=== PATIENT | female | born 1980 | race Caucasian/White ===

== ENCOUNTER 2022-05-17 11:21 | Emergency (ER) | payer MEDICARE ==
[2022-05-17 13:03] LABS: Absolute Lymphocytes (CBC) 2.6 K/uL (0.7-4.9); MCV 83.9 fL (80-100); MPV 8.2 fL (7.6-11.3); RBC Red Blood Cell Count 4.53 M/uL (3.86-4.86)
[2022-05-17 13:22] LABS: Potassium 3.5 mmol/L (3.5-5.1); Troponin High Sensitivity 3.2 pg/mL (<58.9)
[2022-05-17 13:32] LABS: Blood Morphology Comment NOT SEEN (NOT SEEN); Platelet Estimate ADEQ
--- NOTE | 2022-05-17 13:43 | RAD REPORT ---
EXAM DESCRIPTION: RAD - Chest Single View - 05/17/2022 1:04 pm CLINICAL HISTORY: SOB COMPARISON: None TECHNIQUE: AP portable chest image was obtained 05/17/2022 1:04 pm . FINDINGS: No focal mass or consolidation. Mild prominence of the interstitial pattern is believed to be patient's baseline parenchymal pattern accentuated by shallow inspiration. Heart and vasculature are normal. No measurable pleural effusion and no pneumothorax. No acute bony abnormality seen. No ac [place] aortic findings suspected. IMPRESSION: No acute cardiopulmonary process.
[2022-05-17] MEDS ORDERED: LORazepam 2 MG/ML VIAL ONE ×2 (14:46→15:27)
--- NOTE | 2022-05-17 15:33 | RAD REPORT ---
EXAM DESCRIPTION: CT - Head Brain Wo Cont - 05/17/2022 3:20 pm CLINICAL HISTORY: seizure, headache COMPARISON: No comparisons TECHNIQUE: Axial 5 mm thick images of the head were obtained without IV contrast. All CT scans are performed using dose optimization technique as appropriate and may include automated exposure control or mA/KV adjustment according to patient size. FINDINGS: No intracranial hemorrhage, mass, edema or shift of mid-line structures. No acute infarcti on changes seen. No abnormal extra-axial fluid collections. Ventricles are normal. Mastoid air cells and visualized portions of the paranasal sinuses are clear. No acute bony findings. IMPRESSION: Negative non-contrast CT head examination.
--- NOTE | 2022-05-17 15:36 | RAD REPORT ---
EXAM DESCRIPTION: CT - Chest For Pe Angio - 05/17/2022 3:26 pm CLINICAL HISTORY: chest pain, sob COMPARISON: Chest Single View dated 05/17/2022 TECHNIQUE: Dynamically enhanced 3 mm thick images of the chest were obtained during administration o f approximately 150mL Isovue 370 IV contrast. Coronal and oblique MIP reconstruction images were gene rated and reviewed. Exam utilizes a protocol to evaluate the pulmonary arterial tree. All CT scans are performed using dose optimization technique as appropriate and may include automated exposure control or mA/KV adjustment according to patient size. FINDINGS: No pulmonary emboli are identified. The aorta as imaged shows no acute or suspicious finding. No pericardial thickening or effusion. No infiltrate or mass in the lung parenchyma. No pleural effusion or pleural thickening. No mediastinal or hilar suspicious masses. No chest wall masses or abnormal axillary lymphadenopathy. IMPRESSION: No pulmonary emboli identified. No other significant or suspicious findings in the chest.
--- NOTE | 2022-05-17 15:38 | RAD REPORT ---
EXAM DESCRIPTION: CT - Abdomen Pelvis W Contrast - 05/17/2022 3:26 pm CLINICAL HISTORY: right sided flank pain, abdominal pain COMPARISON: No comparisons TECHNIQUE: Biphasic, helical CT imaging of the abdomen and pelvis was performed following 100 ml non -ionic IV contrast. No oral contrast administered. All CT scans are performed using dose optimization technique as appropriate and may include automated exposure control or mA/KV adjustment according to patient size. FINDINGS: No suspicious findings in the lung bases. The liver, spleen, and pancreas show no suspicious findings. Cholecystectomy clips are present. No bi liary tree dilatation. Normal function seen in the right kidney. Left kidney is absent. By history patient has congenitally absent left kidney. No right renal parenchymal abnormality. No hydronephrosis. No bladder abnormaliti es. No adrenal abnormalities. Uterus is absent. Ovaries are absent or atrophic. No adnexal abnormalit ies. No dilated bowel loops or bowel wall thickening. No free air, free fluid or inflammatory stranding. No hernia, mass or bulky lymphadenopathy. No suspicious bony findings. IMPRESSION: Contrast enhanced CT abdomen and pelvis showing no acute or emergent finding. Nonacute findings detailed in the body of the report.
[2022-05-17] MEDS ORDERED: FENTANYL CITR 100 MCG/2 ML ONE (15:58)
[2022-05-17] MEDS ORDERED: KETOROLAC 30 MG/ML INJ ONE (16:31)
--- NOTE | 2022-05-17 17:13 | EDPHYS ---
Physician Documentation [facility] Name: Michelle Cerda Age: 41 yrs Sex: Female : 1980 Arrival Date: 05/17/2022 Time: 11:24 Bed 8 Private MD: ED Physician Vicente Berry HPI: 05/17 12:36 This 41 yrs old Female presents to ER via Ambulatory with complaints of Shortness Of jmm Breath. 12:36 The patient has shortness of breath at rest. Onset: The symptoms/episode began/occurred jm gradually, 3 month(s) ago. Duration: The symptoms are continuous. The patient's shortness of breath is aggravated by nothing, is alleviated by nothing. Patient complains of right sided flank pain and shortness of breath which has been ongoing for months. Patient has concerns due to noticing some right flank swelling. 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 . 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 - Social history:: Smoking status: Patient denies any tobacco usage or history of. ROS: 12:36 Constitutional: Positive for body aches. jmm 12:36 ENT: Positive for sore throat. 12:36 Cardiovascular: Positive for chest pain. 12:36 Respiratory: Positive for shortness of breath. 12:36 Abdomen/GI: Positive for abdominal pain, nausea. 12:36 All other systems are negative. 12:36 Neuro: Positive for headache. [facility] Exam: 12:36 Constitutional: This is a well developed, well nourished patient who is awake, alert, jmm and in no acute distress. Head/Face: atraumatic. Eyes: EOMI, no conjunctival erythema appreciated ENT: Moist Mucus Membranes Neck: Trachea midline, Supple Chest/axilla: Normal chest wall appearance and motion. Cardiovascular: Regular rate and rhythm. No edema appreciated Respiratory: Normal respirations, no respiratory distress appreciated 12:36 Skin: General appearance color normal MS/ Extremity: Moves all extremities, no obvious deformities appreciated, no edema noted to the lower extremities Neuro: Awake and alert Psych: Behavior is normal, Mood is normal, Patient is cooperative and pleasant 12:36 Abdomen/GI: Inspection: abdomen appears normal, Bowel sounds: normal, Palpation: soft, mild abdominal tenderness, right flank pain. Vital Signs: 11:38 BP 136 / 98; Pulse 96; Resp 18; Temp 98.1(O); Pulse Ox 100% ; Weight 97.98 kg; Height 5 agustin ft. 3 in. (160.02 cm); 13:34 BP 134 / 99; Pulse 78; Resp 16; Pulse Ox 100% on R/A; vg1 14:47 BP 140 / 101; Pulse 90; Resp 24; Pulse Ox 99% on R/A; vg1 16:00 BP 124 / 88; Pulse 77; Resp 16; Pulse Ox 100% on R/A; vg1 11:38 Body Mass Index 38.26 (97.98 kg, 160.02 cm) agustin MDM: 12:36 Patient medically screened. [facility] 17:10 ED course: While in the emergency department. Patient exhibited seizure-like activity. rob The patient did not have any postictal state. Stated that the pain she was experiencing caused the seizure. Labs and imaging studies were unremarkable. Patient did have slight alleviation of pain. Patient advised to follow-up with her PCP or establish herself.. 17:11 Data reviewed: vital signs, nurses notes. Counseling: I had a detailed discussion with rob the patient and/or guardian regarding: the historical points, exam findings, and any diagnostic results supporting the discharge/admit diagnosis, lab results, radiology results, the need for outpatient follow up, to return to the emergency department if symptoms worsen or persist or if there are any questions or concerns that arise at home. 05/17 12:35 Order name: Basic Metabolic Panel; Complete Time: 13:23 [facility] 05/17 12:35 Order name: CBC with Diff; Complete Time: 13:33 [facility] 05/17 12:35 Order name: Troponin HS; Complete Time: 13:23 [facility] 05/17 12:35 Order name: XRAY Chest (1 view); Complete Time: 13:52 [facility] 05/17 13:32 Order name: Manual Differential; Complete Time: 13:33 [facility] 05/17 14:48 Order name: CT Head Brain wo Cont; Complete Time: 15:37 [facility] 05/17 14:48 Order name: CT Chest For PE Angio [facility] 05/17 14:48 Order name: CT Abd/Pelvis - IV Contrast Only; Complete Time: 15:39 [facility] 05/17 14:53 Order name: Chest For Pe Angio; Complete Time: 15:37 [facility] 05/17 12:35 Order name: EKG; Complete Time: 12:36 [facility] 05/17 12:35 Order name: Cardiac monitoring; Complete Time: 13:25 [facility] 05/17 12:35 Order name: EKG - Nurse/Tech; Complete Time: 13:08 [facility] 05/17 12:35 Order name: IV Saline Lock; Complete Time: 13:08 [facility] 05/17 12:35 Order name: Labs collected and sent; Complete Time: 13:08 [facility] 05/17 12:35 Order name: O2 Per Protocol; Complete Time: 12:42 [facility] 05/17 12:35 Order name: O2 Sat Monitoring; Complete Time: 12:42 [facility] Administered Medications: 15:00 Not Given (Physician Discretion): Ativan (LORazepam) 1 mg IVP once jl7 15:30 Drug: Ativan (LORazepam) 1 mg Route: IVP; Site: right antecubital; iw 17:23 Follow up: Response: No adverse reaction; Marked relief of symptoms vg1 15:57 Drug: fentaNYL (PF) 50 mcg Route: IVP; Site: left antecubital; jl7 17:23 Follow up: Response: No adverse reaction; No change in condition vg1 16:25 Drug: Ketorolac 30 mg Route: IVP; Site: left antecubital; vg1 17:24 Follow up: Response: No adverse reaction; No change in condition vg1 17:20 Drug: Dilaudid (HYDROmorphone) 1 mg {Note: rass 0.} Route: IVP; Site: left antecubital; vg1 Disposition Summary: 05/17/22 17:39 Discharge Ordered Location: Home(05/17/22 17:39) [facility] Condition: Stable(05/17/22 17:39) jmm Diagnosis - Flank Pain jm Followup: jm - With: Johann Jackson MD - When: 2 - 3 days - Reason: Recheck today's complaints, Continuance of care, Re-evaluation by your physician Discharge Instructions: - Discharge Summary Sheet [facility] - Flank Pain, Adult [facility] Forms: - Medication Reconciliation Form [facility] - Thank You Letter jm - Antibiotic Education [facility] - Prescription Opioid Use [facility] Prescriptions: - Zanaflex 4 mg Oral Tablet - take 1 tablet by ORAL route every 8 hours As needed; 20 tablet; Refills: 0, m Product Selection Permitted Signatures: Dispatcher [employer] EDMS Jluis Ferrell PA PA m Giovanna Smallwood, RN RN iw Manoj Wills RN RN [id number] Natalie Hinson RN RN vg1 Juliana-Celestina Bates RN RN agustin Corrections: (The following items were deleted from the chart) 17:35 17:12 Home m vg1 17:35 17:12 Stable [facility] vg1 17:35 17:12 Right Flank Pain [facility] vg1
--- NOTE | 2022-05-17 17:13 | ER ---
Nurse's Notes [facility] Name: Michelle Cerda Age: 41 yrs Sex: Female : 1980 Arrival Date: 05/17/2022 Time: 11:24 Bed 8 Private MD: Diagnosis: Flank Pain Presentation: 05/17 11:38 Chief complaint: Patient states: pt reports having migraines x 2months, chest pain and agustin SOB x 3 days, right side has a knot x 3 months. Coronavirus screen: Vaccine status: Patient reports being unvaccinated. Ebola Screen: Patient denies travel to an Ebola-affected area in the 21 days before illness onset. Initial Sepsis Screen: Does the patient meet any 2 criteria? No. Patient's initial sepsis screen is negative. Does the patient have a suspected source of infection? No. Patient's initial sepsis screen is negative. Risk Assessment: Do you want to hurt yourself or someone else? Patient reports no desire to harm self or others. Onset of symptoms is unknown. 11:38 Method Of Arrival: Ambulatory agustin 11:38 Acuity: LOIS 3 agustin Triage Assessment: 11:40 General: Appears in no apparent distress. Behavior is calm, cooperative. Pain: Denies agustin pain. 11:40 Respiratory: Reports shortness of breath Onset: The symptoms/episode began/occurred agustin gradually, the patient has mild shortness of breath. 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 - Social history:: Smoking status: Patient denies any tobacco usage or history of. Screenin:30 Abuse screen: Denies threats or abuse. Nutritional screening: No deficits noted. vg1 Tuberculosis screening: No symptoms or risk factors identified. Fall Risk No fall in past 12 months (0 pts). No secondary diagnosis (0 pts). IV access (20 points). Ambulatory Aid- Crutches/Cane/Walker (15 pts). Gait- Normal/Bed Rest/Wheelchair (0 pts) Mental Status- Oriented to own ability (0 pts). Total Randolph Fall Scale indicates Low Risk Score (25-44 pts). Fall prevention measures have been instituted. Side Rails Up X 2 Placed close to Nursing Station Family Present and informed to notify staff if they need to leave bedside As available Patient and Family Educated on Fall Prevention Program and strategies. Assessment: 12:30 General: Appears uncomfortable, Behavior is calm, cooperative. Pain: Complains of pain vg1 in chest, throat, Right flank Pain currently is 10 out of 10 on a pain scale. Neuro: Level of Consciousness is awake, alert, obeys commands, Oriented to person, place, time, situation. Cardiovascular: Reports chest pain, Patient's skin is warm and dry. Respiratory: Reports shortness of breath at rest on exertion cough that is Airway is patent Respiratory effort is even, unlabored, Breath sounds are clear bilaterally. GI: No signs and/or symptoms were reported involving the gastrointestinal system. : Reports 'dark urine'. EENT: No signs and/or symptoms were reported regarding the EENT system. Derm: Skin is intact, is healthy with good turgor. Musculoskeletal: Circulation, motion, and sensation intact. 13:30 Reassessment: Patient appears in no apparent distress at this time. No changes from vg1 previously documented assessment. Patient and/or family updated on plan of care and expected duration. Pain level reassessed. Patient is alert, oriented x 3, equal unlabored respirations, skin warm/dry/pink. 14:44 Reassessment: pt niece stated pt having a seizure; attended bedside with Manoj SALAZAR, pt vg1 bent over side of bedside railing; appeared to be seizing, seizure pads placed on bed; Provider at bedside; pt seized for about three minutes; pt niece stated pt has been having 'mini seizures for a couple of days' stated unsure of medication pt is currently taking. 15:00 Reassessment: Pt stated "I would like to go home now, this seizure that I had is not a vg1 typical seizure I did not foam at the mouth and I did not pee on myself I can just go home, this seizure is bc my body is in pain and im overly stressed and I have some many problems with my body" Educated pt needed a CT and to be monitored, pt stated "I can just leave against medical advice cant I since no one has given me advice" Provider notified. 16:20 Reassessment: Patient appears in no apparent distress at this time. Patient and/or vg1 family updated on plan of care and expected duration. Pain level reassessed. Patient is alert, oriented x 3, equal unlabored respirations, skin warm/dry/pink. 17:00 Reassessment: Patient appears in no apparent distress at this time. Patient and/or vg1 family updated on plan of care and expected duration. Pain level reassessed. Patient is alert, oriented x 3, equal unlabored respirations, skin warm/dry/pink. stated "my whole body hurts, it feels sore, and this knot on my right side is killing me" Provider notified. Vital Signs: 11:38 BP 136 / 98; Pulse 96; Resp 18; Temp 98.1(O); Pulse Ox 100% ; Weight 97.98 kg; Height 5 agustin ft. 3 in. (160.02 cm); 13:34 BP 134 / 99; Pulse 78; Resp 16; Pulse Ox 100% on R/A; vg1 14:47 BP 140 / 101; Pulse 90; Resp 24; Pulse Ox 99% on R/A; vg1 16:00 BP 124 / 88; Pulse 77; Resp 16; Pulse Ox 100% on R/A; vg1 11:38 Body Mass Index 38.26 (97.98 kg, 160.02 cm) ED Course: 11:24 Patient arrived in ED. jj6 11:40 Triage completed. agustin 11:40 Arm band placed on. agustin 12:23 Natalie Hinson, RN is Primary Nurse. 1 12:26 Jluis Ferrell PA is PHCP. [facility] 12:26 Vicente Berry MD is Attending Physician. [facility] 12:30 Patient has correct armband on for positive identification. Bed in low position. Call 1 light in reach. Side rails up X 1. 13:05 XRAY Chest (1 view) In Process Unspecified. EDMS 13:07 Initial lab(s) drawn, by me, sent to lab. EKG done, by ED staff, reviewed by Jluis BECKWITH. Inserted saline lock: 20 gauge in left antecubital area, using aseptic technique. Blood collected. 15:22 CT Head Brain wo Cont In Process Unspecified. EDMS 15:28 Chest For Pe Angio In Process Unspecified. EDMS 15:28 CT Abd/Pelvis - IV Contrast Only In Process Unspecified. EDMS 17:35 No provider procedures requiring assistance completed. IV discontinued, intact, vg1 bleeding controlled, No redness/swelling at site. Pressure dressing applied. 17:37 Johann Jackson MD is Referral Physician. jmm Administered Medications: 15:00 Not Given (Physician Discretion): Ativan (LORazepam) 1 mg IVP once jl7 15:30 Drug: Ativan (LORazepam) 1 mg Route: IVP; Site: right antecubital; iw 17:23 Follow up: Response: No adverse reaction; Marked relief of symptoms vg1 15:57 Drug: fentaNYL (PF) 50 mcg Route: IVP; Site: left antecubital; jl7 17:23 Follow up: Response: No adverse reaction; No change in condition vg1 16:25 Drug: Ketorolac 30 mg Route: IVP; Site: left antecubital; vg1 17:24 Follow up: Response: No adverse reaction; No change in condition vg1 17:20 Drug: Dilaudid (HYDROmorphone) 1 mg {Note: rass 0.} Route: IVP; Site: left antecubital; vg1 Medication: 12:30 VIS not applicable for this client. vg1 Outcome: 17:12 Discharge ordered by MD. rob 17:35 Discharged to home via wheelchair, with family. vg1 17:35 Condition: good 17:35 Discharge instructions given to patient, Instructed on discharge instructions, follow up and referral plans. medication usage, Demonstrated understanding of instructions, follow-up care, medications, Prescriptions given X 1. 17:39 Discharge ordered by MD. [facility] 17:40 Patient left the ED. vg1 Signatures: Dispatcher [employer] EDMS Jluis Ferrell PA PA jmm Williams, Irene, RN MARIE iw Manoj Wills RN RN jl7 Natalie Hinson RN RN vg1 Anamaria Junior jj6 Juliana-StageCelestina hurtado RN RN ha Waits, Jodi jw7
[2022-05-17] MEDS ORDERED: HYDROMORPHONE HCL 1 MG/ML INJ ONE (17:21)
[2022-05-17 19:13] VITALS: TEMP 98.1; O2SAT 100
[2022-05-17 19:27] VITALS: BP 124/88
--- NOTE | 2022-05-18 07:58 | EKG ---
Test Date: 2022-05-17 Test Time: 13:07:29 Earth Sciences Professor: DESTINEY MEASUREMENT RESULTS: Intervals: Rate: 72 MD: 160 QRSD: 84 QT: 386 QTc: 422 [place]: P: 20 MD: 160 QRS: 89 T: 0 INTERPRETIVE STATEMENTS: Normal sinus rhythm T wave abnormality, consider anterolateral ischemia Abnormal ECG No previous ECG available for comparison Electronically Signed On 05-18-22 07:55:31 CDT by Dickson Greene
== END 2022-05-17 17:40 | disposition home or self-care (01) ==
LOC: ER 11:21
DX: R10.9 Unspecified abdominal pain (principal); R06.02 Shortness of breath; G43.909 Migraine, unspecified, not intractable, without status migrainosus; R07.9 Chest pain, unspecified; Z88.5 Allergy status to narcotic agent; Z88.2 Allergy status to sulfonamides; Z88.1 Allergy status to other antibiotic agents
CPT/HCPCS: 93005; 85025; 80048; 36415; 84484; 70450; 71275; 74177; 71045; 99284; Q9967; J3010; J1170